=== PATIENT | male | born 1985 | race Caucasian/White ===

== ENCOUNTER 2016-05-07 17:49 | Emergency (ER) | payer OTHER ==
[2016-05-07 18:19] VITALS: BP 155/70; PULSE 89; RESP 18; TEMP 98.3
--- NOTE | 2016-05-07 19:04 | ED ---
ENT HPI - General Chief complaint: ENT Stated complaint: Sore throat Time Seen by Provider: 05/07/16 18:46 Source: patient, RN notes reviewed Mode of arrival: ambulatory Limitations: no limitations - History of Present Illness Initial comments: Patient is a 30-year-old male presents to the emergency room complaining of throat pain. Patient states he began having throat pain for the past week. Patient states yesterday the pain was worse. Patient states he called in to work today due to throat pain. Patient states he took 500 mg of Naprosyn with no relief of symptoms. Patient denies any fevers or chills. Patient denies ear pain or headache. Patient states having 7 out of 10 throat pain every time he swallows it feels like he is swallowing shards of glass. Patient states he' s had strep throat before and it feels similar. Patient denies any abdominal pain, nausea or vomiting. - Related Data Home Medications Medication Instructions Recorded Confirmed Naproxen 500 mg PO BID PRN 05/07/16 05/07/16 Promethazine HCl/Codeine 5 ml PO BID PRN 05/07/16 05/07/16 [Prometh-Codein 6.25-10 mg/5 ml] Allergies Allergy/AdvReac Type Severity Reaction Status Date / Time No Known Allergies Allergy Verified 05/07/16 18:24 Review of Systems ROS Statement: Those systems with pertinent positive or pertinent negative responses have been documented in the HPI. ROS Other: All systems not noted in ROS Statement are negative. Past Medical History Past Medical History: No Reported History History of Any Multi-Drug Resistant Organisms: None Reported Past Surgical History: Orthopedic Surgery Past Psychological History: Anxiety Smoking Status: Current every day smoker Past Alcohol Use History: None Reported Past Drug Use History: Heroin, Marijuana General Exam - General Exam Comments Initial Comments: Sitting on exam bed, in no acute distress. Limitations: no limitations General appearance: alert, in no apparent distress Head exam: Present: atraumatic, normocephalic, normal inspection Eye exam: Present: normal appearance ENT exam: Present: mucous membranes moist, TM's normal bilaterally Expanded Mouth exam: Present: normal external inspection Teeth exam: Present: normal inspection Throat exam: normal inspection Neck exam: Present: normal inspection, full ROM. Absent: tenderness, lymphadenopathy Respiratory exam: Present: normal lung sounds bilaterally. Absent: respiratory distress Cardiovascular Exam: Present: regular rate, normal rhythm, normal heart sounds Extremities exam: Present: normal inspection Back exam: Present: normal inspection Neurological exam: Present: alert, oriented X3, CN II-XII intact, normal gait Psychiatric exam: Present: normal affect, normal mood Skin exam: Present: warm, dry, intact, normal color. Absent: rash Course Vital Signs 05/07/16 18:16 Temperature 98.3 F Pulse Rate 89 Respiratory 18 Rate Blood Pressure 155/70 O2 Sat by Pulse 95 Oximetry Medical Decision Making - Medical Decision Making Patient is a 30-year-old male presents to the emergency room for evaluation of throat pain. Rapid strep negative. Advised patient to gargle with salt water and to take [id number] medications as needed. Patient states he understands everything that was discussed with him. Return parameters discussed. - Lab Data Lab Results 05/07/16 Range/Units 19:07 Group A Strep Rapid Negative (Negative) Disposition Clinical Impression: Acute viral pharyngitis Disposition: HOME SELF-CARE Condition: Good Instructions: Pharyngitis (ED) Additional Instructions: Take Tylenol or Motrin as needed for discomfort. Saltwater gargles. Please follow up with primary care provider in 1-2 days. If any new symptom arises, symptoms worsen or fever develops, return to ER as soon as possible. Referrals: Meeta Donis MD [Primary Care Provider] - 1-2 days Time of Disposition: 19:26
== END 2016-05-07 19:49 | disposition home or self-care (01) ==
LOC: EC 17:49
DX: J02.8 Acute pharyngitis due to other specified organisms (principal); B97.89 Other viral agents as the cause of diseases classified elsewhere; F17.200 Nicotine dependence, unspecified, uncomplicated
CPT/HCPCS: 87081; 87430; 99283

== ENCOUNTER 2019-12-06 10:47 | Emergency (ER) | payer OTHER ==
[2019-12-06 10:56] VITALS: BP 167/94; PULSE 81; RESP 18; TEMP 98.2
[2019-12-06] MEDS ORDERED: ACETAMINOPHEN TAB 325 MG TAB PO STA (11:04)
--- NOTE | 2019-12-06 11:05 | ED ---
General Adult HPI - General Chief complaint: Extremity Injury, Lower Stated complaint: Foot pain Time Seen by Provider: 12/06/19 10:58 Source: patient, RN notes reviewed, old records reviewed Mode of arrival: ambulatory Limitations: no limitations - History of Present Illness Initial comments: 33-year-old male patient presents here for evaluation of left ankle and foot injury. Patient reports that he tripped and fell yesterday hurting his ankle. Denies hitting his head or his neck. Patient's father reports that he came home and found his son asleep on the floor but he was easily arousable. He reports that his son has history of drug abuse. Patient reports that he might have passed out after he stood up. He denies any head pain, neck pain, changes in vision. The patient is declining any further workup with the exception of x-rays on his foot and his ankle. Systemic: Pt denies fatigue, fever/chills, rash. Pt denies weakness, night sweats, weight loss. Neuro: Pt denies headache, visual disturbances. HEENT: Pt denies ocular discharge or irritation, otalgia, rhinorrhea, pharyngitis or notable lymphadenopathy. Cardiopulmonary: Pt denies chest pain, SOB, heart palpitations, dyspnea on exertion. Abdominal/GI: Pt denies abdominal pain, n/v/d. : Pt denies dysuria, burning w/ urination, frequency/urgency. Denies new onset urinary or bowel incontinence. MSK: Pt denies any paresthesias. Neuro: Pt denies new onset weakness. - Related Data Home Medications Medication Instructions Recorded Confirmed Naproxen 500 mg PO BID PRN 05/07/16 05/07/16 Promethazine HCl/Codeine 5 ml PO BID PRN 05/07/16 05/07/16 [Prometh-Codein 6.25-10 mg/5 ml] Allergies Allergy/AdvReac Type Severity Reaction Status Date / Time No Known Allergies Allergy Verified 12/06/19 10:56 Review of Systems ROS Statement: Those systems with pertinent positive or pertinent negative responses have been documented in the HPI. ROS Other: All systems not noted in ROS Statement are negative. Past Medical History Past Medical History: No Reported History History of Any Multi-Drug Resistant Organisms: None Reported Past Surgical History: Orthopedic Surgery Past Psychological History: Anxiety Smoking Status: Current every day smoker Past Alcohol Use History: Rare Past Drug Use History: Heroin, Marijuana General Exam - General Exam Comments Initial Comments: Constitutional: NAD, AOX3, Pt has pleasant affect. HEENT: NC/AT, trachea midline, neck supple, no lymphadenopathy. External ears appear normal, without discharge. Mucous membranes moist. Eyes PERRLA, EOM intact. There is no scleral icterus. No pallor noted. Cardiopulmonary: RRR, no murmurs, rubs or gallops, no JVD noted. Lungs CTAB in anterior and posterior ruth. No peripheral edema. Abdominal exam: Abdomen soft and non-distended. Abdomen non-tender to palpation in all 4 quadrants. Bowel sounds active in LLQ. No hepatosplenomegaly. Neuro: CN II-XII intact. No nuchal rigidity. No raccon eyes, no mendoza sign, no hemotympanum. No cervical spinal tenderness. MSK: left foot and ankle displayed soft tissue swelling tenderness to the anterior ankle mortise, lateral malleolus, dorsal foot as well as the midfoot region. No posterior calf tenderness bilaterally, homans sign negative bilaterally. Posterior tibialis and radial pulse +2 bilaterally. Sensation intact in upper and lower extremities. Full active ROM in upper and lower extremities, 5/5 stregnth. Limitations: no limitations Course Vital Signs 12/06/19 10:55 Temperature 98.2 F Pulse Rate 81 Respiratory 18 Rate Blood Pressure 167/94 O2 Sat by Pulse 99 Oximetry Medical Decision Making - Medical Decision Making 33-year-old male patient presents to ED for evaluation of ankle/foot pain. Patient reportedly fell yesterday possibly could've passed out. Reports around that time he believes he injured his ankle. Patient vital signs are stable, afebrile. Physical exam displayed tenderness to palpation of his ankle. Plain films displayed possible and struck injury. Patient placed in a posterior ankle splint and strongly advised not to bear weight and close patient follow-up with orthopedics tomorrow. I did strongly recommend patient do further workup for his possible syncopal episode I stated that at minimum we should do an EKG which is fast and noninvasive. Patient is displaying adequate decision making skills and wishes to decline all workup with exception of his ankle. I explained that in worse case scenario this could be fatal he verbalized understanding. Patient father in room as well. Will be discharged with outpatient follow up with PCP and orthopedics tomorrow. Case discussed with Dr. Gee. Disposition Clinical Impression: Foot sprain, Fall Narrative: Possible linsfranc injury, possible syncope Disposition: HOME SELF-CARE Condition: Stable Instructions (If sedation given, give patient instructions): Foot Sprain (ED) Additional Instructions: continue to wear splint. Use crutches do not bear weight on left lower extremity. Follow-up with orthopedic consult tomorrow. Follow up with PCP tomorrow. Return here if any worsening symptoms. Is patient prescribed a controlled substance at d/c from ED?: No Referrals: None,Stated [Primary Care Provider] - 1-2 days aJnie Amor DO [Doctor of Osteopathic Medicine] - 1-2 days Peterson Callahan [STAFF PHYSICIAN] - 1-2 days
--- NOTE | 2019-12-06 11:28 | XR ---
EXAMINATION TYPE: XR ankle complete 3 views LT, XR foot complete 3 views LT DATE OF EXAM: 12/06/2019 COMPARISON: NONE HISTORY: 33-year-old male pain after fall FINDINGS: Ankle: Corticated bone density below the medial malleolus suggesting sequela of remote injury. Circumferenti al soft tissue swelling at the ankle. Mild degenerative spurring at the tibiotalar joint. Os trigonum . Small delineation to the Achilles tendon. Subtalar joint align. No acute fracture, subluxation, or dislocation is seen. Foot: Marked dorsal soft tissue swelling. Degenerative degenerative change in the dorsal midfoot with spurr ing at the intertarsal and TMT joints. Very subtle step-off along the medial margin of the second TMT articulation on the AP view. Otherwise , no acute fracture, subluxation, or dislocation is seen. IMPRESSION: 1. Ankle: Circumferential soft tissue swelling. Sequela of remote injury at the medial malleolus. No acute osseous abnormal body seen. 2. Foot: Marked dorsal soft tissue swelling. Underlying midfoot osteoarthrosis. There may be subtle w idening at the Lisfranc joint suggesting possible underlying Lisfranc injury.
[2019-12-06] MEDS ORDERED: IBUPROFEN 600 MG STARTER PACK 4 TAB BTL PO STA (11:52)
== END 2019-12-06 11:55 | disposition home or self-care (01) ==
LOC: EC 10:47
DX: S93.602A Unspecified sprain of left foot, initial encounter (principal); F17.200 Nicotine dependence, unspecified, uncomplicated; Z98.890 Other specified postprocedural states; W01.0XXA Fall on same level from slipping, tripping and stumbling without subsequent striking against object, initial encounter
CPT/HCPCS: 29515; 99284

== ENCOUNTER 2019-12-27 18:14 | Emergency (ER) | payer OTHER ==
[2019-12-27 18:22] VITALS: RESP 20; TEMP 99.6
--- NOTE | 2019-12-27 19:18 | CT ---
EXAMINATION TYPE: CT brain cspine wo con DATE OF EXAM: 12/27/2019 COMPARISON: None HISTORY: Fall with posterior head laceration. CT DLP: 2060.6 mGycm Automated exposure control for dose reduction was used. Ventricles and sulci appear normal. There is no mass effect nor midline shift. There is no sign of in tracranial hemorrhage. The calvarium is intact. There is no evidence of cerebral edema. Skull base is intact. There is normal aeration of the mastoid sinuses. Occipital bone is intact. The cervical vertebra have normal alignment. Disc spaces are normal. Posterior elements are intact. F acet joints are intact. Prevertebral soft tissues are intact. IMPRESSION: Normal CT scan of the brain. Normal CT scan cervical spine.
[2019-12-27 19:25] VITALS: BP 126/99; PULSE 109
--- NOTE | 2019-12-27 19:45 | ED ---
General Adult HPI - General Chief complaint: Fall Stated complaint: Fall, Head Lac Time Seen by Provider: 12/27/19 18:28 Source: patient, RN notes reviewed, old records reviewed Mode of arrival: EMS Limitations: no limitations - History of Present Illness Initial comments: 34-year-old male patient no pertinent past medical history presents to ED for mechanical fall. Patient reports using the bathroom and he fell back and hit his head. Denies any loss of consciousness. Denies any headache or neck pain. Denies any other injury. Denies any other acute complaints. Systemic: Pt denies fatigue, fever/chills, rash. Pt denies weakness, night sweats, weight loss. Neuro: Pt denies headache, visual disturbances, syncope or pre-syncope. HEENT: Pt denies ocular discharge or irritation, otalgia, rhinorrhea, pharyngitis or notable lymphadenopathy. Cardiopulmonary: Pt denies chest pain, SOB, heart palpitations, dyspnea on exertion. Abdominal/GI: Pt denies abdominal pain, n/v/d. : Pt denies dysuria, burning w/ urination, frequency/urgency. Denies new onset urinary or bowel incontinence. MSK: Pt denies myalgia, loss of strength or function in extremities. Neuro: Pt denies new onset weakness, paresthesias. - Related Data Home Medications Medication Instructions Recorded Confirmed Naproxen 500 mg PO BID PRN 05/07/16 05/07/16 Promethazine HCl/Codeine 5 ml PO BID PRN 05/07/16 05/07/16 [Prometh-Codein 6.25-10 mg/5 ml] Allergies Allergy/AdvReac Type Severity Reaction Status Date / Time No Known Allergies Allergy Verified 12/27/19 18:17 Review of Systems ROS Statement: Those systems with pertinent positive or pertinent negative responses have been documented in the HPI. ROS Other: All systems not noted in ROS Statement are negative. Past Medical History Past Medical History: No Reported History History of Any Multi-Drug Resistant Organisms: None Reported Past Surgical History: Cholecystectomy, Orthopedic Surgery Past Psychological History: Anxiety, Depression Smoking Status: Current every day smoker Past Alcohol Use History: Rare Past Drug Use History: Heroin, Marijuana General Exam - General Exam Comments Initial Comments: Constitutional: NAD, AOX3, Pt has pleasant affect. HEENT: NC/AT, trachea midline, neck supple, no lymphadenopathy. Posterior pharynx non erythematous, without exudates. External ears appear normal, without discharge. Mucous membranes moist. Eyes PERRLA, EOM intact. There is no scleral icterus. No pallor noted. Cardiopulmonary: RRR, no murmurs, rubs or gallops, no JVD noted. Lungs CTAB in anterior and posterior ruth. No peripheral edema. Abdominal exam: Abdomen soft and non-distended. Abdomen non-tender to palpation in all 4 quadrants. Bowel sounds active in LLQ. No hepatosplenomegaly. No ecchymosis Neuro: CN II-XII intact. No nuchal rigidity. No raccon eyes, no mendoza sign, no hemotympanum. No cervical spinal tenderness. MSK: Full active ROM in upper and lower extremities, 5/5 stregnth. Limitations: no limitations Course Vital Signs 12/27/19 12/27/19 18:18 19:23 Temperature 99.6 F Pulse Rate 128 H 109 H Respiratory 20 20 Rate Blood Pressure 158/103 126/99 O2 Sat by Pulse 94 L 94 L Oximetry Procedures - Laceration Laceration #1 Consent Obtained: verbal consent Indication: laceration Site: scalp Size (cm): 4 Description: linear Depth: simple, single layer Pre-repair: wound explored, irrigated extensively, deep structures intact Type of Sutures: other (staple) Size of Sutures: other (staple) Number of Sutures: 7 Patient Tolerated Procedure: well, no complications Medical Decision Making - Medical Decision Making 34-year-old male patient presents to ED for evaluation of mechanical fall and laceration scalp. CT brain negative. Neurologic exam is intact. No other injuries. Tetanus up-to-date. Approximated 7 torsten. Patient requesting discharge.We'll discharge the patient follow-up and return precautions. case discussed with Dr. Gee. - EKG Data -: EKG Interpreted by Me (and Dr. Al good) EKG Comments: Ventricular rate 111, W[place] inteval 138, QRS 80, QT/QTC 322/437. Sinus tachycardia, no concern for acute ischemia at this time. Disposition Clinical Impression: Fall, Laceration Disposition: HOME SELF-CARE Condition: Stable Instructions (If sedation given, give patient instructions): Laceration (ED) Additional Instructions: Please return for suture removal: Scalp: 7 days Please monitor for signs and symptoms of infection including: redness, warmth, drainage, discharge. Please return to ED if these signs or symptoms occur, new signs or symptoms develop or if condition worsens in anyway. Is patient prescribed a controlled substance at d/c from ED?: No Referrals: None,Stated [Primary Care Provider] - 1-2 days Flex Suárez MD [REFERRING] - 1-2 days
== END 2019-12-27 20:06 | disposition home or self-care (01) ==
LOC: EC 18:14
DX: S01.01XA Laceration without foreign body of scalp, initial encounter (principal); F17.200 Nicotine dependence, unspecified, uncomplicated; W18.39XA Other fall on same level, initial encounter; Y92.002 Bathroom of unspecified non-institutional (private) residence as the place of occurrence of the external cause
CPT/HCPCS: 12002; 70450; 72125; 93005; 99284

== ENCOUNTER 2020-01-20 17:18 | Emergency (ER) | payer OTHER ==
[2020-01-20 17:36] VITALS: BP 179/88; PULSE 91; RESP 18; TEMP 98.3
--- NOTE | 2020-01-20 17:47 | ED ---
General Adult HPI - General Chief complaint: Nausea/Vomiting/Diarrhea Stated complaint: Diahrrea Time Seen by Provider: 01/20/20 17:37 Source: patient, RN notes reviewed, old records reviewed Mode of arrival: ambulatory Limitations: no limitations - History of Present Illness Initial comments: Pt is a 34 year old male whom reports diarrhea 2 days ago after eating [place] food, and he told his work. 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 Pt denies abdominal pain or further episodes of diarrhea. Denies fever. Denies any other compliants. PT reports needing return to work note. - Related Data Home Medications Medication Instructions Recorded Confirmed Naproxen 500 mg PO BID PRN 05/07/16 05/07/16 Promethazine HCl/Codeine 5 ml PO BID PRN 05/07/16 05/07/16 [Prometh-Codein 6.25-10 mg/5 ml] Allergies Allergy/AdvReac Type Severity Reaction Status Date / Time No Known Allergies Allergy Verified 12/27/19 18:17 Review of Systems ROS Statement: Those systems with pertinent positive or pertinent negative responses have been documented in the HPI. ROS Other: All systems not noted in ROS Statement are negative. Past Medical History Past Medical History: No Reported History History of Any Multi-Drug Resistant Organisms: None Reported Past Surgical History: Cholecystectomy, Orthopedic Surgery Past Psychological History: Anxiety, Depression Smoking Status: Current every day smoker Past Alcohol Use History: Rare Past Drug Use History: Heroin, Marijuana General Exam - General Exam Comments Initial Comments: 34 year old male, no distress. Limitations: no limitations General appearance: alert, in no apparent distress Head exam: Present: atraumatic, normocephalic, normal inspection Eye exam: Present: normal appearance, PERRL, EOMI. Absent: scleral icterus, conjunctival injection, periorbital swelling ENT exam: Present: normal exam, mucous membranes moist Neck exam: Present: normal inspection. Absent: tenderness, meningismus, lymphadenopathy Respiratory exam: Present: normal lung sounds bilaterally. Absent: respiratory distress, wheezes, rales, rhonchi, stridor Cardiovascular Exam: Present: regular rate, normal rhythm, normal heart sounds. Absent: systolic murmur, diastolic murmur, rubs, gallop, clicks GI/Abdominal exam: Present: soft, normal bowel sounds. Absent: distended, tenderness, guarding, rebound, rigid Back exam: Present: normal inspection Neurological exam: Present: alert, oriented X3, CN II-XII intact Psychiatric exam: Present: normal affect, normal mood Skin exam: Present: warm, dry, intact, normal color. Absent: rash Course Vital Signs 01/20/20 17:33 Temperature 98.3 F Pulse Rate 91 Respiratory 18 Rate Blood Pressure 179/88 O2 Sat by Pulse 98 Oximetry Medical Decision Making - Medical Decision Making PT given note for work and advised to return to ED or discontinue working if there is fever or further episodes of diarrhea. Disposition Clinical Impression: Diarrhea Disposition: HOME SELF-CARE Condition: Good Instructions (If sedation given, give patient instructions): Acute Diarrhea (ED) Additional Instructions: Pt can return to work. Please follow up with family doctor if symptoms have not improved over the next two days. Please return to the emergency room if your symptoms increase or worsen or for any other concerns. Is patient prescribed a controlled substance at d/c from ED?: No Referrals: None,Stated [Primary Care Provider] - 1-2 days Time of Disposition: 17:46
== END 2020-01-20 18:01 | disposition home or self-care (01) ==
LOC: EC 17:18
DX: R19.7 Diarrhea, unspecified (principal); F17.200 Nicotine dependence, unspecified, uncomplicated
CPT/HCPCS: 99284

== ENCOUNTER 2020-04-13 19:13 | Emergency (ER) | payer OTHER ==
[~2020-04-13 19:13] MED LIST: ATROPINE SULFATE 0.1 MG/ML 10ML SYRINGE ONE; CALCIUM CHLORIDE 100 MG/ML 10 ML SYRINGE ONE; EPINEPHrine 10 ML SYRINGE (0.1 MG/ML) ONE; MAGNESIUM SULFATE SYG 4.06 MEQ/ML SYRINGE ONE; NALOXONE 0.4 MG/ML 1 ML VIAL ONE; NALOXONE 0.4 MG/ML 10 ML VIAL ONE; SODIUM BICARB 8.4% 50 ML SYR (1 MEQ/ML) ONE
[2020-04-13 19:29] LABS: Glucose,Whole Blood 142 mg/dL (75-99)
--- NOTE | 2020-04-13 20:12 | ED ---
General Adult HPI - General Stated complaint: overdose - History of Present Illness Initial comments: Dictation was produced using Puz[employer] dictation software. please excuse any grammatical, word or spelling errors. This patient was cared for during a federal and state declared state of emergency secondary to Covid 19 Chief Complaint: 34-year-old male with unknown medical history presents with cardiac arrest History of Present Illness: 34-year-old male he has unknown medical history. He presents to emergency department after cardiac arrest. Patient was allegedly ran taxicab when all of a sudden became unresponsive. Taxi drove straight to the emergency department. Patient is found to be pulseless. According to nurse received report patient was eating a burger in the back of the taxi when this happened. Chart review was performed. Patient was seen here in emergency department on January 19 for diarrhea after eating [place] food. Patient was al so seen here in emergency department in December 26 after mechanical fall. Patient has past drug use of heroin and marijuana. Unable to obtain secondary to mental status. PHYSICAL EXAM: General Impression: Obtunded, pale and cyanotic, fixed and dilated HEENT: Normocephalic atraumatic Cardiovascular: Pulseless Chest: Bilateral breath sounds with bag mask spelling Abdomen: Obese, soft abdomen Musculoskeletal: Mottled lower extremities ED course: 34-year-old male brought to the emergency department after being found unresponsive in the taxi cab. Patient was pulseless upon initial evaluati on. Patient was placed on a stretcher in the parking lot and put into trauma 1 bed. CPR was continued for several minutes. Return of spontaneous circulation was obtained. Left IJ central venous catheter was placed. Patient was intubated using a kaleidoscope. Right radial artery line was placed. EKG shows diffuse ST depressions. Cardiology was paged repeatedly after EKG was obtained. Patient was hypotensive and started on pressors. EKG interpretation: Ventricular rate 109, sinus tachycardia,. 158, QRS 104, QTC 441. ST depressions in 1, aVL, V2. There is a Q wave in lead 3. V1 ST e levation, V3 to V6 ST depressions. Repeat EKG shows no ST depressions or ST elevations. Ventricular rate of 74, normal sinus rhythm,. 146, QRS 94, QTC of 486. Case discussed with Dr. Manley at approximately 8:26 PM. No indications for r&d lab technician activation at this time given repeat EKG looked benign. Patient's blood pressure and heart rate began to increase significantly. His blood pressure is now down 240s and heart rate is in the 140s. Patient's blood pressure and heart rate remained elevated despite turning off vasopressors.. Patient started on labetalol to reverse some of the pressor effect. Patient reevaluated at bedside at approximately 9:40 PM. Patient fixed and dilated pupils. Patient not showing signs of meaningful neurologic function. Labs shows leukocytosis 22.2 likely secondary to stress. Coag panel is negative. Arterial blood gas shows pH of 7.12 with pCO2 59 bicarb of 19. Sex likely reflects primary respiratory acidosis. Bicarb of 16 with a gap of 18, lactic acidosis of 13.2. TSH is 7.690. Pending urine studies. Tox labs are negative. Patient be admitted to Dr. Alexandre. Case was discussed with Dr. Rodríguez who is willing to accept patients care. He recommends that patient get a CT brain. He also recommends that patient be given 100 g of Synthroid for concerns of possible myxedema coma here patient's prognosis is really poor. He will be placed in ICU for further care. - Related Data Home Medications Medication Instructions Recorded Confirmed No Known Home Medications 04/13/20 04/13/20 Allergies Allergy/AdvReac Type Severity Reaction Status Date / Time No Known Allergies Allergy Verified 04/13/20 21:01 Review of Systems ROS Statement: Those systems with pertinent positive or pertinent negative responses have been documented in the HPI. ROS Other: All systems not noted in ROS Statement are negative. Past Medical History Past Medical History: No Reported History History of Any Multi-Drug Resistant Organisms: None Reported Past Surgical History: Cholecystectomy, Orthopedic Surgery Past Psychological History: Anxiety, Depression Smoking Status: Current every day smoker Past Alcohol Use History: Rare Past Drug Use History: Heroin, Marijuana Course Vital Signs 04/13/20 04/13/20 04/13/20 19:15 19:30 19:45 Temperature Pulse Rate 0 L Pulse Rate [ 135 H 96 Apical] Respiratory 0 L 14 12 Rate Blood Pressure Blood Pressure 93/33 79/30 [Left Arm] O2 Sat by Pulse 0 L Oximetry 04/13/20 04/13/20 04/13/20 20:00 20:15 20:30 Temperature 97.7 F Pulse Rate Pulse Rate [ 76 80 87 Apical] Respiratory 12 16 18 Rate Blood Pressure Blood Pressure 82/30 82/38 129/64 [Left Arm] O2 Sat by Pulse Oximetry 04/13/20 04/13/20 04/13/20 20:45 21:24 21:26 Temperature Pulse Rate 133 H 134 H Pulse Rate [ Apical] Respiratory 128 H 12 8 L Rate Blood Pressure 241/149 241/149 Blood Pressure 152/76 [Left Arm] O2 Sat by Pulse 93 L 91 L 86 L Oximetry 04/13/20 21:30 Temperature 97.9 F Pulse Rate Pulse Rate [ 138 H Apical] Respiratory 12 Rate Blood Pressure Blood Pressure 241/169 [Left Arm] O2 Sat by Pulse Oximetry ABP, PAP, CO, CI - Last 8 Hours Arterial Blood Pressure 265/143 Arterial Blood Pressure 264/143 Procedures - Arterial Line No standard instances Consent Obtained: emergent situation Size (Gauge): 16 Technique Used: direct puncture technique Post-Procedure: line sutured into place Patient Tolerated Procedure: well Complications: none - Central Line Placement Left IJ Consent Obtained: emergent situation Patient Placed on Monitor/Pulse Ox: Yes MD Prep: mask, gown, gloves Central Line Prep: Povidone-Iodine 1%, Chlorhexidine scrub Ultrasound Used for Placement: Yes Central Line Lumen Inserted: triple Bloods Obtained for Lab: Yes Central Line Position: good blood return, all ports aspirated, flushed, capped, sutured in place with 3-0 nylon Dressing Applied: Tegaderm Post Procedure X-Ray: tip of catheter in good position Patient Tolerated Procedure: well Complications: none - Intubation Laryngoscope: fiber optic video scope Size: 3 Assist Device Used: fiber optic device ET Tube Size: 8 ET Tube Uncuffed: No Tube Secured Depth (cm): 25 Tube Secured Location: lips Tube Placement Confirmation: visualized tube passing through cords Patient Tolerated Procedure: well Medical Decision Making - Lab Data Result diagrams: 04/13/20 20:01 04/13/20 20:01 Lab Results 04/13/20 04/13/20 04/13/20 Range/Units 19:27 20:01 20:01 WBC 22.2 H (3.8-10.6) k/uL RBC 4.50 (4.30-5.90) m/uL Hgb 13.1 (13.0-17.5) gm/dL Hct 40.6 (39.0-53.0) % MCV 90.1 (80.0-100.0) fL MCH 29.1 (25.0-35.0) pg MCHC 32.3 (31.0-37.0) g/dL RDW 14.6 (11.5-15.5) % Plt Count 292 (150-450) k/uL MPV 7.3 Neutrophils % (Manual) 58 % Band Neuts % (Manual) 6 % Lymphocytes % (Manual) 25 % Monocytes % (Manual) 3 % Eosinophils % (Manual) 1 % Metamyelocytes % 3 % Myelocytes % 6 % Neutrophils # (Manual) 14.20 H (1.3-7.7) k/uL Lymphocytes # (Manual) 5.55 H (1.0-4.8) k/uL Monocytes # (Manual) 0.67 (0-1.0) k/uL Eosinophils # (Manual) 0.22 (0-0.7) k/uL Metamyelocytes # (Man) 0.67 H (0) k/uL Myelocytes # (Manual) 1.33 H (0) k/uL Nucleated RBCs 0 (0-0) /100 WBC Manual Slide Review Performed Polychromasia Present Hypochromasia Slight PT 10.0 (9.0-12.0) sec INR 0.9 (<1.2) APTT 20.1 L (22.0-30.0) sec Sample Site ABG pH (7.35-7.45) ABG pCO2 (35-45) mmHg ABG pO2 (83-108) mmHg ABG HCO3 (21-25) mmol/L ABG Total CO2 (19-24) mmol/L ABG O2 Saturation (94-97) % ABG Base Excess mmol/L Mazin Test FiO2 % Sodium (137-145) mmol/L Potassium (3.5-5.1) mmol/L Chloride (98-107) mmol/L Carbon Dioxide (22-30) mmol/L Anion Gap mmol/L BUN (9-20) mg/dL Creatinine (0.66-1.25) mg/dL Est GFR (CKD-EPI)AfAm (>60 ml/min/1.73 sqM) Est GFR (CKD-EPI)NonAf (>60 ml/min/1.73 sqM) Glucose (74-99) mg/dL POC Glucose (mg/dL) 142 H (75-99) mg/dL POC Glu Hand Scudder ID Marilyn David Plasma Lactic Acid Hermelindo (0.7-2.0) mmol/L Calcium (8.4-10.2) mg/dL Magnesium (1.6-2.3) mg/dL Total Bilirubin (0.2-1.3) mg/dL AST (17-59) U/L ALT (4-49) U/L Alkaline Phosphatase (38-126) U/L Creatine Kinase (55-170) U/L Troponin I (0.000-0.034) ng/mL Total Protein (6.3-8.2) g/dL Albumin (3.5-5.0) g/dL Lipase (23-300) U/L TSH (0.465-4.680) mIU/L Acetaminophen ug/mL Serum Alcohol mg/dL Blood Type Blood Type Recheck Bld Type Recheck Status Antibody Screen Spec Expiration Date 04/13/20 04/13/20 04/13/20 Range/Units 20:01 20:01 20:01 WBC (3.8-10.6) k/uL RBC (4.30-5.90) m/uL Hgb (13.0-17.5) gm/dL Hct (39.0-53.0) % MCV (80.0-100.0) fL MCH (25.0-35.0) pg MCHC (31.0-37.0) g/dL RDW (11.5-15.5) % Plt Count (150-450) k/uL MPV Neutrophils % (Manual) % Band Neuts % (Manual) % Lymphocytes % (Manual) % Monocytes % (Manual) % Eosinophils % (Manual) % Metamyelocytes % % Myelocytes % % Neutrophils # (Manual) (1.3-7.7) k/uL Lymphocytes # (Manual) (1.0-4.8) k/uL Monocytes # (Manual) (0-1.0) k/uL Eosinophils # (Manual) (0-0.7) k/uL Metamyelocytes # (Man) (0) k/uL Myelocytes # (Manual) (0) k/uL Nucleated RBCs (0-0) /100 WBC Manual Slide Review Polychromasia Hypochromasia PT (9.0-12.0) sec INR (<1.2) APTT (22.0-30.0) sec Sample Site ABG pH (7.35-7.45) ABG pCO2 (35-45) mmHg ABG pO2 (83-108) mmHg ABG HCO3 (21-25) mmol/L ABG Total CO2 (19-24) mmol/L ABG O2 Saturation (94-97) % ABG Base Excess mmol/L Mazin Test FiO2 % Sodium 141 (137-145) mmol/L Potassium 5.0 (3.5-5.1) mmol/L Chloride 107 (98-107) mmol/L Carbon Dioxide 16 L (22-30) mmol/L Anion Gap 18 mmol/L BUN 12 (9-20) mg/dL Creatinine 1.11 (0.66-1.25) mg/dL Est GFR (CKD-EPI)AfAm >90 (>60 ml/min/1.73 sqM) Est GFR (CKD-EPI)NonAf 86 (>60 ml/min/1.73 sqM) Glucose 273 H (74-99) mg/dL POC Glucose (mg/dL) (75-99) mg/dL POC Glu Hand Scudder ID Plasma Lactic Acid Hermelindo 13.2 H* (0.7-2.0) mmol/L Calcium 10.4 H (8.4-10.2) mg/dL Magnesium 3.5 H (1.6-2.3) mg/dL Total Bilirubin 0.2 (0.2-1.3) mg/dL AST 134 H (17-59) U/L ALT 106 H (4-49) U/L Alkaline Phosphatase 66 (38-126) U/L Creatine Kinase 120 (55-170) U/L Troponin I (0.000-0.034) ng/mL Total Protein 5.6 L (6.3-8.2) g/dL Albumin 3.1 L (3.5-5.0) g/dL Lipase 136 (23-300) U/L TSH 7.690 H (0.465-4.680) mIU/L Acetaminophen <10.0 ug/mL Serum Alcohol <10 mg/dL Blood Type O Positive Blood Type Recheck No Previous Record Bld Type Recheck Status CABO Indicated Antibody Screen NEGATIVE Spec Expiration Date 04/16/2020 - 230004/13/20 04/13/20 Range/Units 20:01 20:50 WBC (3.8-10.6) k/uL RBC (4.30-5.90) m/uL Hgb (13.0-17.5) gm/dL Hct (39.0-53.0) % MCV (80.0-100.0) fL MCH (25.0-35.0) pg MCHC (31.0-37.0) g/dL RDW (11.5-15.5) % Plt Count (150-450) k/uL MPV Neutrophils % (Manual) % Band Neuts % (Manual) % Lymphocytes % (Manual) % Monocytes % (Manual) % Eosinophils % (Manual) % Metamyelocytes % % Myelocytes % % Neutrophils # (Manual) (1.3-7.7) k/uL Lymphocytes # (Manual) (1.0-4.8) k/uL Monocytes # (Manual) (0-1.0) k/uL Eosinophils # (Manual) (0-0.7) k/uL Metamyelocytes # (Man) (0) k/uL Myelocytes # (Manual) (0) k/uL Nucleated RBCs (0-0) /100 WBC Manual Slide Review Polychromasia Hypochromasia PT (9.0-12.0) sec INR (<1.2) APTT (22.0-30.0) sec Sample Site A Line ABG pH 7.12 L* (7.35-7.45) ABG pCO2 59 H (35-45) mmHg ABG pO2 102 (83-108) mmHg ABG HCO3 19 L (21-25) mmol/L ABG Total CO2 21 (19-24) mmol/L ABG O2 Saturation 96.6 (94-97) % ABG Base Excess -10.2 mmol/L Mazin Test Yes FiO2 100 % Sodium (137-145) mmol/L Potassium (3.5-5.1) mmol/L Chloride (98-107) mmol/L Carbon Dioxide (22-30) mmol/L Anion Gap mmol/L BUN (9-20) mg/dL Creatinine (0.66-1.25) mg/dL Est GFR (CKD-EPI)AfAm (>60 ml/min/1.73 sqM) Est GFR (CKD-EPI)NonAf (>60 ml/min/1.73 sqM) Glucose (74-99) mg/dL POC Glucose (mg/dL) (75-99) mg/dL POC Glu Hand Scudder ID Plasma Lactic Acid Hermelindo (0.7-2.0) mmol/L Calcium (8.4-10.2) mg/dL Magnesium (1.6-2.3) mg/dL Total Bilirubin (0.2-1.3) mg/dL AST (17-59) U/L ALT (4-49) U/L Alkaline Phosphatase (38-126) U/L Creatine Kinase (55-170) U/L Troponin I 0.015 (0.000-0.034) ng/mL Total Protein (6.3-8.2) g/dL Albumin (3.5-5.0) g/dL Lipase (23-300) U/L TSH (0.465-4.680) mIU/L Acetaminophen ug/mL Serum Alcohol mg/dL Blood Type Blood Type Recheck Bld Type Recheck Status Antibody Screen Spec Expiration Date Disposition Clinical Impression: Cardiac arrest Disposition: ADMITTED IP TO THIS [facility] Condition: Critical Referrals: None,Stated [Primary Care Provider] - 1-2 days Decision Time: 21:56
[2020-04-13] MEDS ORDERED: NOREPINEPHRINE 32 MG in SODIUM CHLORIDE 0.9% 218 ML IV ONE (20:14)
[2020-04-13 20:27] LABS: AST 134 U/L (17-59); Acetaminophen <10.0 ug/mL; African American GFR (CKD) >90 (>60 ml/min/1.73 sqM); Albumin 3.1 g/dL (3.5-5.0); Alcohol <10 mg/dL; Alkaline Phosphatase 66 U/L (38-126); Anion Gap 18 mmol/L; Blood Urea Nitrogen 12 mg/dL (9-20); Calcium 10.4 mg/dL (8.4-10.2); Carbon Dioxide 16 mmol/L (22-30); Chloride 107 mmol/L (98-107); Creatine Kinase 120 U/L (55-170); Glucose 273 mg/dL (74-99); Lipase 136 U/L (23-300); Magnesium 3.5 mg/dL (1.6-2.3); Non-African American GFR(CKD) 86 (>60 ml/min/1.73 sqM); Sodium 141 mmol/L (137-145); Total Bilirubin 0.2 mg/dL (0.2-1.3); Total Protein 5.6 g/dL (6.3-8.2)
[2020-04-13 20:34] LABS: ALT 106 U/L (4-49)
[2020-04-13 20:38] LABS: HCT 40.6 % (39.0-53.0); HGB 13.1 gm/dL (13.0-17.5); Hypochromasia Slight; MCH 29.1 pg (25.0-35.0); MCHC 32.3 g/dL (31.0-37.0); MCV 90.1 fL (80.0-100.0); Mean Platelet Volume 7.3; Platelet Count 292 k/uL (150-450); RDW 14.6 % (11.5-15.5); WBC 22.2 k/uL (3.8-10.6)
[2020-04-13 20:42] LABS: INR 0.9 (<1.2)
--- NOTE | 2020-04-13 20:53 | XR ---
EXAMINATION TYPE: XR chest 1V portable DATE OF EXAM: 04/13/2020 COMPARISON: 06/28/2015. HISTORY: Overdose and tube placement. TECHNIQUE: Single frontal view of the chest is obtained. FINDINGS: There is demonstration of an endotracheal tube terminating approximately 2.7 cm above the yohannes. There is a left IJ catheter with tip overlying the caudal SVC. There is a nasogastric tube wi th tip overlying the stomach. The lungs are hypoaerated. There is small left pleural effusion with ad jacent atelectasis. No pneumothorax. The cardiac silhouette size is enlarged. The osseous structur es are intact. IMPRESSION: Status post support apparatus as above. No pneumothorax. Small left pleural effusion with adjacent atelectasis.
[2020-04-13 20:54] LABS: Partial Thromboplastin Time 20.1 sec (22.0-30.0)
[2020-04-13 20:54] LABS: ABG Base Excess -10.2 mmol/L; ABG HCO3 19 mmol/L (21-25); ABG Oxygen Saturation 96.6 % (94-97); ABG PCO2 59 mmHg (35-45); ABG PO2 102 mmHg (83-108); ABG TCO2 21 mmol/L (19-24); Allen Test Performed? Yes
[2020-04-13 21:19] LABS: Band Neutrophils % 6 %; Eosinophils # (M) 0.22 k/uL (0-0.7); Lymphocytes # (M) 5.55 k/uL (1.0-4.8); Metamyelocytes # (M) 0.67 k/uL (0); Metamyelocytes % 3 %; Monocytes # (M) 0.67 k/uL (0-1.0); Myelocytes # (M) 1.33 k/uL (0); Myelocytes % 6 %; Neutrophils % (M) 58 %; Nucleated Red Blood Cells 0 /100 WBC (0-0); Total Cells Counted 200
[2020-04-13 21:22] LABS: ABG PH 7.12 (7.35-7.45)
[2020-04-13 21:22] LABS: Polychromasia Present
[2020-04-13] MEDS ORDERED: NOREPINEPHRINE 4 MG in SODIUM CHLORIDE 0.9% 250 ML IV ONE (21:23)
[2020-04-13] MEDS ORDERED: LABETALOL 200 MG in SODIUM CHLORIDE 0.9% 160 ML IV ONE (21:37)
[2020-04-13] MEDS ORDERED: NALOXONE 0.4 MG/ML 1 ML VIAL IV PRN (21:52)
[2020-04-13] MEDS ORDERED: ACETAMINOPHEN SUPPOSITORY 650 MG SUPP RECTAL PRN (21:52)
[2020-04-13] MEDS ORDERED: LEVOTHYROXINE IVP 100 MCG/5 ML VIAL IV SCH (22:00)
[2020-04-13] MEDS ORDERED: SODIUM CHLORIDE 0.9% 1,000 ML IV SCH (22:00)
--- NOTE | 2020-04-13 22:44 | CT ---
EXAMINATION TYPE: CT brain wo con DATE OF EXAM: 04/13/2020 COMPARISON: 12/27/2019 HISTORY: Unresponsive, overdose CT DLP: 1285.4 mGycm Automated exposure control for dose reduction was used. There is high attenuation in the subarachnoid space in both cerebral hemispheres including the interh emispheric fissure and the sylvian fissure and the cerebellar tentorium and consistent with acute sub arachnoid hemorrhage. There is loss of the sulci pattern consistent with diffuse cerebral edema. Ther e is hypodensity in the left and right caudate nucleus which could relate to acute infarct. The prabhu rium is intact. The skull base is intact. There is normal aeration of the paranasal sinuses. There is normal aeration of the mastoid sinuses. The fourth ventricle is small and there is loss of the perim esencephalic cistern which suggests uncal herniation. IMPRESSION: Diffuse subarachnoid hemorrhage. Source of the hemorrhage is not identified. There is evidence for diffuse cerebral edema with loss of the normal alba-white matter differentiatio n. There is probably uncal herniation. 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 This exam was discussed with Dr. Faulkner at 10:45 PM.
[2020-04-13 22:50] LABS: T4, Free (Free Thyroxine) 0.71 ng/dL (0.78-2.19)
--- NOTE | 2020-04-13 22:54 | ED ---
Medical Decision Making - Medical Decision Making Radiology read and struck neurology recommendations were reviewed with director of food and beverage services Dr. Rodríguez. He recommends that patient be transferred out due to lack of neurology and neurosurgery. Case is rediscussed with Dr. Smith who recommends patient be transferred to [facility] for further care. More history was obtained from patient's father Raul Mcpherson. He reports that patient struggles with opiate abuse. Plan was discussed with him. Lives 10 minutes when will come to see him prior to transfer to [facility]. Pending CT angiogram head and neck results. Transfer team requests that we test patient for Covid 19. Accepting physician is Dr. Garces who is the hospitalist to [facility]. Patient be transferred directly to intensive care unit. Patient ordered for mannitol per recommendation by Dr. Smith. - Lab Data Result diagrams: 04/13/20 20:01 04/13/20 20:01 Lab Results 04/13/20 04/13/20 04/13/20 Range/Units 19:27 20:01 20:01 WBC 22.2 H (3.8-10.6) k/uL RBC 4.50 (4.30-5.90) m/uL Hgb 13.1 (13.0-17.5) gm/dL Hct 40.6 (39.0-53.0) % MCV 90.1 (80.0-100.0) fL MCH 29.1 (25.0-35.0) pg MCHC 32.3 (31.0-37.0) g/dL RDW 14.6 (11.5-15.5) % Plt Count 292 (150-450) k/uL MPV 7.3 Neutrophils % (Manual) 58 % Band Neuts % (Manual) 6 % Lymphocytes % (Manual) 25 % Monocytes % (Manual) 3 % Eosinophils % (Manual) 1 % Metamyelocytes % 3 % Myelocytes % 6 % Neutrophils # (Manual) 14.20 H (1.3-7.7) k/uL Lymphocytes # (Manual) 5.55 H (1.0-4.8) k/uL Monocytes # (Manual) 0.67 (0-1.0) k/uL Eosinophils # (Manual) 0.22 (0-0.7) k/uL Metamyelocytes # (Man) 0.67 H (0) k/uL Myelocytes # (Manual) 1.33 H (0) k/uL Nucleated RBCs 0 (0-0) /100 WBC Manual Slide Review Performed Polychromasia Present Hypochromasia Slight PT 10.0 (9.0-12.0) sec INR 0.9 (<1.2) APTT 20.1 L (22.0-30.0) sec Sample Site ABG pH (7.35-7.45) ABG pCO2 (35-45) mmHg ABG pO2 (83-108) mmHg ABG HCO3 (21-25) mmol/L ABG Total CO2 (19-24) mmol/L ABG O2 Saturation (94-97) % ABG Base Excess mmol/L Mazin Test FiO2 % Sodium (137-145) mmol/L Potassium (3.5-5.1) mmol/L Chloride (98-107) mmol/L Carbon Dioxide (22-30) mmol/L Anion Gap mmol/L BUN (9-20) mg/dL Creatinine (0.66-1.25) mg/dL Est GFR (CKD-EPI)AfAm (>60 ml/min/1.73 sqM) Est GFR (CKD-EPI)NonAf (>60 ml/min/1.73 sqM) Glucose (74-99) mg/dL POC Glucose (mg/dL) 142 H (75-99) mg/dL POC Glu Freight Hustler ID [place]heart, Marilyn Lactic Ac Sepsis Rflx Plasma Lactic Acid Hermelindo (0.7-2.0) mmol/L Calcium (8.4-10.2) mg/dL Magnesium (1.6-2.3) mg/dL Total Bilirubin (0.2-1.3) mg/dL AST (17-59) U/L ALT (4-49) U/L Alkaline Phosphatase (38-126) U/L Creatine Kinase (55-170) U/L Troponin I (0.000-0.034) ng/mL Total Protein (6.3-8.2) g/dL Albumin (3.5-5.0) g/dL Lipase (23-300) U/L TSH (0.465-4.680) mIU/L Free T4 (0.78-2.19) ng/dL Free T3 pg/mL (2.8-5.3) pg/ml Acetaminophen ug/mL Serum Alcohol mg/dL Blood Type Blood Type Confirm Blood Type Recheck Bld Type Recheck Status Antibody Screen Spec Expiration Date 04/13/20 04/13/20 04/13/20 Range/Units 20:01 20:01 20:01 WBC (3.8-10.6) k/uL RBC (4.30-5.90) m/uL Hgb (13.0-17.5) gm/dL Hct (39.0-53.0) % MCV (80.0-100.0) fL MCH (25.0-35.0) pg MCHC (31.0-37.0) g/dL RDW (11.5-15.5) % Plt Count (150-450) k/uL MPV Neutrophils % (Manual) % Band Neuts % (Manual) % Lymphocytes % (Manual) % Monocytes % (Manual) % Eosinophils % (Manual) % Metamyelocytes % % Myelocytes % % Neutrophils # (Manual) (1.3-7.7) k/uL Lymphocytes # (Manual) (1.0-4.8) k/uL Monocytes # (Manual) (0-1.0) k/uL Eosinophils # (Manual) (0-0.7) k/uL Metamyelocytes # (Man) (0) k/uL Myelocytes # (Manual) (0) k/uL Nucleated RBCs (0-0) /100 WBC Manual Slide Review Polychromasia Hypochromasia PT (9.0-12.0) sec INR (<1.2) APTT (22.0-30.0) sec Sample Site ABG pH (7.35-7.45) ABG pCO2 (35-45) mmHg ABG pO2 (83-108) mmHg ABG HCO3 (21-25) mmol/L ABG Total CO2 (19-24) mmol/L ABG O2 Saturation (94-97) % ABG Base Excess mmol/L Mazin Test FiO2 % Sodium 141 (137-145) mmol/L Potassium 5.0 (3.5-5.1) mmol/L Chloride 107 (98-107) mmol/L Carbon Dioxide 16 L (22-30) mmol/L Anion Gap 18 mmol/L BUN 12 (9-20) mg/dL Creatinine 1.11 (0.66-1.25) mg/dL Est GFR (CKD-EPI)AfAm >90 (>60 ml/min/1.73 sqM) Est GFR (CKD-EPI)NonAf 86 (>60 ml/min/1.73 sqM) Glucose 273 H (74-99) mg/dL POC Glucose (mg/dL) (75-99) mg/dL POC Glu Freight Hustler ID Lactic Ac Sepsis Rflx Plasma Lactic Acid Hermelindo 13.2 H* (0.7-2.0) mmol/L Calcium 10.4 H (8.4-10.2) mg/dL Magnesium 3.5 H (1.6-2.3) mg/dL Total Bilirubin 0.2 (0.2-1.3) mg/dL AST 134 H (17-59) U/L ALT 106 H (4-49) U/L Alkaline Phosphatase 66 (38-126) U/L Creatine Kinase 120 (55-170) U/L Troponin I (0.000-0.034) ng/mL Total Protein 5.6 L (6.3-8.2) g/dL Albumin 3.1 L (3.5-5.0) g/dL Lipase 136 (23-300) U/L TSH 7.690 H (0.465-4.680) mIU/L Free T4 (0.78-2.19) ng/dL Free T3 pg/mL (2.8-5.3) pg/ml Acetaminophen <10.0 ug/mL Serum Alcohol <10 mg/dL Blood Type O Positive Blood Type Confirm Blood Type Recheck No Previous Record Bld Type Recheck Status CABO Indicated Antibody Screen NEGATIVE Spec Expiration Date 04/16/2020 - 230004/13/20 04/13/20 04/13/20 Range/Units 20:01 20:12 20:40 WBC (3.8-10.6) k/uL RBC (4.30-5.90) m/uL Hgb (13.0-17.5) gm/dL Hct (39.0-53.0) % MCV (80.0-100.0) fL MCH (25.0-35.0) pg MCHC (31.0-37.0) g/dL RDW (11.5-15.5) % Plt Count (150-450) k/uL MPV Neutrophils % (Manual) % Band Neuts % (Manual) % Lymphocytes % (Manual) % Monocytes % (Manual) % Eosinophils % (Manual) % Metamyelocytes % % Myelocytes % % Neutrophils # (Manual) (1.3-7.7) k/uL Lymphocytes # (Manual) (1.0-4.8) k/uL Monocytes # (Manual) (0-1.0) k/uL Eosinophils # (Manual) (0-0.7) k/uL Metamyelocytes # (Man) (0) k/uL Myelocytes # (Manual) (0) k/uL Nucleated RBCs (0-0) /100 WBC Manual Slide Review Polychromasia Hypochromasia PT (9.0-12.0) sec INR (<1.2) APTT (22.0-30.0) sec Sample Site ABG pH (7.35-7.45) ABG pCO2 (35-45) mmHg ABG pO2 (83-108) mmHg ABG HCO3 (21-25) mmol/L ABG Total CO2 (19-24) mmol/L ABG O2 Saturation (94-97) % ABG Base Excess mmol/L Mazin Test FiO2 % Sodium (137-145) mmol/L Potassium (3.5-5.1) mmol/L Chloride (98-107) mmol/L Carbon Dioxide (22-30) mmol/L Anion Gap mmol/L BUN (9-20) mg/dL Creatinine (0.66-1.25) mg/dL Est GFR (CKD-EPI)AfAm (>60 ml/min/1.73 sqM) Est GFR (CKD-EPI)NonAf (>60 ml/min/1.73 sqM) Glucose (74-99) mg/dL POC Glucose (mg/dL) (75-99) mg/dL POC Glu Freight Hustler ID Lactic Ac Sepsis Rflx Y Plasma Lactic Acid Hermelindo (0.7-2.0) mmol/L Calcium (8.4-10.2) mg/dL Magnesium (1.6-2.3) mg/dL Total Bilirubin (0.2-1.3) mg/dL AST (17-59) U/L ALT (4-49) U/L Alkaline Phosphatase (38-126) U/L Creatine Kinase (55-170) U/L Troponin I 0.015 (0.000-0.034) ng/mL Total Protein (6.3-8.2) g/dL Albumin (3.5-5.0) g/dL Lipase (23-300) U/L TSH (0.465-4.680) mIU/L Free T4 0.71 L (0.78-2.19) ng/dL Free T3 pg/mL 4.2 (2.8-5.3) pg/ml Acetaminophen ug/mL Serum Alcohol mg/dL Blood Type Blood Type Confirm Blood Type Recheck Bld Type Recheck Status Antibody Screen Spec Expiration Date 04/13/20 04/13/20 Range/Units 20:50 21:19 WBC (3.8-10.6) k/uL RBC (4.30-5.90) m/uL Hgb (13.0-17.5) gm/dL Hct (39.0-53.0) % MCV (80.0-100.0) fL MCH (25.0-35.0) pg MCHC (31.0-37.0) g/dL RDW (11.5-15.5) % Plt Count (150-450) k/uL MPV Neutrophils % (Manual) % Band Neuts % (Manual) % Lymphocytes % (Manual) % Monocytes % (Manual) % Eosinophils % (Manual) % Metamyelocytes % % Myelocytes % % Neutrophils # (Manual) (1.3-7.7) k/uL Lymphocytes # (Manual) (1.0-4.8) k/uL Monocytes # (Manual) (0-1.0) k/uL Eosinophils # (Manual) (0-0.7) k/uL Metamyelocytes # (Man) (0) k/uL Myelocytes # (Manual) (0) k/uL Nucleated RBCs (0-0) /100 WBC Manual Slide Review Polychromasia Hypochromasia PT (9.0-12.0) sec INR (<1.2) APTT (22.0-30.0) sec Sample Site A Line ABG pH 7.12 L* (7.35-7.45) ABG pCO2 59 H (35-45) mmHg ABG pO2 102 (83-108) mmHg ABG HCO3 19 L (21-25) mmol/L ABG Total CO2 21 (19-24) mmol/L ABG O2 Saturation 96.6 (94-97) % ABG Base Excess -10.2 mmol/L Mazin Test Yes FiO2 100 % Sodium (137-145) mmol/L Potassium (3.5-5.1) mmol/L Chloride (98-107) mmol/L Carbon Dioxide (22-30) mmol/L Anion Gap mmol/L BUN (9-20) mg/dL Creatinine (0.66-1.25) mg/dL Est GFR (CKD-EPI)AfAm (>60 ml/min/1.73 sqM) Est GFR (CKD-EPI)NonAf (>60 ml/min/1.73 sqM) Glucose (74-99) mg/dL POC Glucose (mg/dL) (75-99) mg/dL POC Glu [employer] ID Lactic Ac Sepsis Rflx Plasma Lactic Acid [place] (0.7-2.0) mmol/L Calcium (8.4-10.2) mg/dL Magnesium (1.6-2.3) mg/dL Total Bilirubin (0.2-1.3) mg/dL AST (17-59) U/L ALT (4-49) U/L Alkaline Phosphatase (38-126) U/L Creatine Kinase (55-170) U/L Troponin I (0.000-0.034) ng/mL Total Protein (6.3-8.2) g/dL Albumin (3.5-5.0) g/dL Lipase (23-300) U/L TSH (0.465-4.680) mIU/L Free T4 (0.78-2.19) ng/dL Free T3 pg/mL (2.8-5.3) pg/ml Acetaminophen ug/mL Serum Alcohol mg/dL Blood Type Blood Type Confirm O Positive Blood Type Recheck Bld Type Recheck Status Antibody Screen Spec Expiration Date Disposition Clinical Impression: Cardiac arrest Disposition: OTHER INSTITUTION NOT DEFINED Condition: Critical - Out of Hospital Transfer - Req. Specs Out of Hospital Transfer - Requested Specifics: Other Emergency Center ([facility]
[2020-04-13] MEDS ORDERED: MANNITOL 20% PMX 500 ML in SALINE 1 500ML.BAG IV ONE (22:58)
[2020-04-13 23:24] LABS: Appearance,Urine Clear (Clear); Bacteria,Urine Rare /hpf; Bilirubin,Urine Negative (Negative); Blood,Urine Large (Negative); Budding Yeast,Urine Few /hpf; Color,Urine Light Yellow; Glucose,Urine (UA) Trace (Negative); Ketones,Urine Negative (Negative); Leukocyte Esterase,Urine Negative (Negative); Mucus,Urine Rare /hpf; Nitrite,Urine Negative (Negative); Protein,Urine 2+ (Negative); RBC,Urine 9 /hpf (0-5); Specific Gravity,Urine 1.008 (1.001-1.035); Squamous Epithelial Cell,Urine <1 /hpf (0-4); Urobilinogen,Urine <2.0 mg/dL (<2.0); WBC,Urine 16 /hpf (0-5)
[2020-04-13 23:27] LABS: Amphetamine Screen,Urine Not Detected (NotDetected); Barbiturate Screen,Urine Not Detected (NotDetected); Benzodiazepines Screen,Urine Not Detected (NotDetected); Cocaine Screen,Urine Not Detected (NotDetected); Methadone Screen, Urine Not Detected (NotDetected); Opiate Screen,Urine Detected (NotDetected); Oxycodone Screen, Urine Not Detected (NotDetected); Phencyclidine Screen,Urine Not Detected (NotDetected); Tricyclic Antidepressant,Urine Not Detected (NotDetected); Urn Cannabinoid Scrn Not Detected (NotDetected)
--- NOTE | 2020-04-13 23:58 | CT ---
EXAMINATION TYPE: CT angio head neck DATE OF EXAM: 04/13/2020 COMPARISON: None HISTORY: AMS CT DLP: 1040.6 mGycm Automated exposure control for dose reduction was used. CONTRAST: Performed with IV Contrast, patient injected with 65 mL of Isovue 370. Images were obtained from the top of aortic arch to the vertex of the brain with IV contrast. There is airspace consolidation in the right upper lobe with air bronchograms. This appears to be a c hange compared to the portable chest x-ray 3 hours ago. There is endotracheal tube noted. There is nasogastric tube. There is arterial flow in both subclavian arteries. There is arterial flow in the common internal and external carotid arteries bilaterally. There is wide patency of the carotid artery bifurcations. The re is arterial flow in both vertebral arteries which appear widely patent. There is arterial flow in the vertebrobasilar artery system. There is arterial flow in the anterior middle and posterior cerebral arteries. I see no evidence of i ntracranial aneurysm or neovascularity. There is very little contrast seen in the venous sinuses. Thi s could reflect increased intracranial pressure. There is effacement of the sulci throughout the brai n. The fourth ventricle is small. There is effacement of the perimesencephalic cistern. IMPRESSION: No arterial abnormality identified. There is a lack of contrast opacification of the venous sinuses t hat is consistent with increased intracranial pressure. There is effacement of the sulci also consist ent with increased pressure and cerebral edema.
[2020-04-14 00:45] VITALS: RESP 20
[2020-04-14 00:50] VITALS: TEMP 98.1
[2020-04-14 01:12] VITALS: BP 109/71; PULSE 88
[2020-04-14] MEDS ORDERED: MANNITOL 20% PMX 500 ML in SALINE 1 500ML.BAG IV ONE (01:15)
[2020-04-14 07:31] LABS: Urine Alcohol Negative (Negative); Urine Barbiturate Negative (Negative); Urine Cocaine Negative (Negative); Urine Methadone Negative (Negative); Urine Opiates Negative (Negative); Urine Phencyclidine Negative (Negative)
== END 2020-04-14 01:20 | disposition other institution (70) ==
LOC: EC 19:13 → UNDOADMIN 21:52 → 2SICU 21:52 → EC 04-14 01:20
DX: I46.9 Cardiac arrest, cause unspecified (principal); F17.200 Nicotine dependence, unspecified, uncomplicated; Z90.49 Acquired absence of other specified parts of digestive tract; Z20.828 Contact with and (suspected) exposure to other viral communicable diseases
CPT/HCPCS: 99285; 92950; 31500; 36556; 36415; 93005; 86900; 86901; 84439; 84481; 80053; 82550; 82805; 83605; 83690; 83735; 84443; 84484; 85025; 85610; 85730; 86850; 81001; 80306 ×2; 80143; 87635; 71045; 70496; 70450; 70498; G0480; J2310 ×2; J3475; J0461; J0171; Q9967; 80320; 94002